=== PATIENT | female | born 1990 | race African-American/Black ===

== ENCOUNTER 2017-04-29 04:04 | Emergency (ER) | payer OTHER ==
[~2017-04-29] VITALS: Ht 165.1 cm; Wt 79.4 kg
[2017-04-29 04:10] VITALS: BP 183/93
[2017-04-29] MEDS ORDERED: CEPHALEXIN 250 MG CAPSULE ONE (04:26)
[2017-04-29] MEDS ORDERED: IBUPROFEN 600 MG TABLET. PO ONE ×2 (04:26→04:30)
[2017-04-29] MEDS ORDERED: IBUP600T16 PO (04:26)
[2017-04-29] MEDS ORDERED: HYDR-971 PO (04:26)
[2017-04-29] MEDS ORDERED: CEPH-264 PO (04:26)
[2017-04-29] MEDS ORDERED: HYDROcodone/APAP 5/325MG 1 TAB TABLET ONE (04:26)
--- NOTE | 2017-04-29 04:27 | PHYS DOC ---
Past History Past Medical History: No Pertinent History Past Surgical History: No Surgical History Alcohol Use: None Drug Use: None Adult General Chief Complaint Chief Complaint: DENTAL PROBLEM HPI HPI Patient is a 26-year-old female who presents here today complaining of a toothache in her right upper and right lower molars. Patient reports she is unable see her dentist for one week. Patient denies any other symptomatology. Review of systems: Constitutional: Denies fever or chills Eyes: Denies change in visual acuity, redness, or eye pain HENT: Denies nasal congestion or sore throat All other review systems are negative except as documented in the history of present illness portion. Physical exam: Constitutional: Well developed, well nourished, no acute distress, non-toxic appearance. HENT: Normocephalic, atraumatic, bilateral external ears normal, nose normal. Eyes: EOMI, conjunctiva normal, no discharge. Neck: Normal range of motion, no tenderness, supple, no stridor. Cardiovascular:Heart rate regular rhythm Lungs & Thorax: Bilateral breath sounds clear to auscultation no respiratory distress Abdomen: Bowel sounds normal, soft, no tenderness, no masses, no pulsatile masses. Skin: Warm, dry, no erythema, no rash. Back: No tenderness, no CVA tenderness. Extremities: No tenderness, no cyanosis, no clubbing, ROM intact, no edema. Neurologic: Alert and oriented X 3, normal motor function, normal sensory function, no focal deficits noted. Psychologic: Affect normal, judgement normal, mood normal. ER physical exam is significant for no trismus. Patient does have tenderness to palpation to her upper and lower molars on the right side. Patient does have soft tissue swelling to her right cheek. Assessment and plan 26-year-old female with dental pain secondary to a likely microabscess. Patient be started on Motrin, [place], Keflex. Urine test pending. Current Medications Current Medications Current Medications Medications (Trade) Dose Ordered Sig/Irene Start Time Stop Time Status Last Admin Dose Admin Acetaminophen/ Hydrocodone Bitart (Lortab 5/325) 1 tab 1X ONCE 04/29/17 04:30 04/29/17 04:31 UNV Cephalexin HCl (Keflex) 500 mg 1X ONCE 04/29/17 04:30 04/29/17 04:31 UNV Ibuprofen (Motrin) 600 mg 1X ONCE 04/29/17 04:30 04/29/17 04:31 UNV Allergies Allergies Allergies Coded Allergies Type Severity Reaction Last Updated Verified No Known Drug Allergies 04/29/17 No Current Patient Data Vital Signs Vital Signs Date Time Temp Pulse Resp B/P (MAP) Pulse Ox O2 Delivery O2 Flow Rate FiO2 04/29/17 04:10 98.0 83 18 98 Room Air EKG EKG [] Radiology/Procedures Radiology/Procedures [] Course & Med Decision Making Course & Med Decision Making Pertinent Labs and Imaging studies reviewed. (See chart for details) [] Dragon Disclaimer Dragon Disclaimer This electronic medical record was generated, in whole or in part, using a voice recognition dictation system. Departure Departure: Impression: Primary Impression: Pain, dental Disposition: HOME, SELF-CARE Condition: IMPROVED Referrals: PCP,RAD (PCP) Patient Instructions: Toothache-Brief Scripts Hydrocodone Bit/Acetaminophen (NORCO 5-325 TABLET) 1 Each Tablet 1 TAB PO PRN Q6HRS Y for PAIN, #12 TAB 0 Refills Prov: KARINA GALVIN MD 04/29/17 Cephalexin (KEFLEX) 500 Mg Capsule 1 CAP PO TID, #30 CAP Prov: KARINA GALVIN MD 04/29/17 Ibuprofen (IBUPROFEN) 600 Mg Tablet 600 MG PO QID Y for PAIN, #20 Prov: KARINA GALVIN MD 04/29/17 KARINA GALVIN MD Apr 29, 2017 04:27
[2017-04-29] MEDS ORDERED: CEPHALEXIN 250 MG CAPSULE PO ONE (04:30)
[2017-04-29] MEDS ORDERED: HYDROcodone/APAP 5/325MG 1 TAB TABLET PO ONE (04:30)
== END 2017-04-29 04:45 | disposition home or self-care (01) ==
LOC: ER 04:04
DX: K08.89 Other specified disorders of teeth and supporting structures (principal)
CPT/HCPCS: 81025; 99284

== ENCOUNTER 2019-10-08 20:55 | Emergency (ER) | payer OTHER ==
[~2019-10-08] VITALS: Ht 167.6 cm; Wt 86.0 kg
[~2019-10-08 20:55] MED LIST: CEPH-264 PO; HYDR-3165 PO; IBUP600T16 PO; PROC5TAB34 PO
--- NOTE | 2019-10-08 21:43 | PHYS DOC ---
Past History Past Medical History: No Pertinent History Past Surgical History: No Surgical History Alcohol Use: None General Adult EDM: Chief Complaint: PELVIC PAIN HPI: HPI: 29-year-old female presents with pelvic pain for last 2 days. She states that the pain starts deep in her pelvis and radiates around to her buttocks. She states that it is a deep cramping sensation. She says that it feels like contractions of labor. She is not . She did deliver a baby 5 months ago. She has not had any rectal bleeding or vaginal bleeding. She does admit to some change in vaginal discharge. Review of Systems: Review of Systems: Constitutional: Denies fever or chills Eyes: Denies change in visual acuity HENT: Denies nasal congestion or sore throat Respiratory: Denies cough or shortness of breath Cardiovascular: Denies chest pain or edema GI: Lower abdominal pain. Denies nausea, vomiting, bloody stools or diarrhea : Vaginal discharge Musculoskeletal: Denies back pain or joint pain Integument: Denies rash Neurologic: Denies headache, focal weakness or sensory changes Endocrine: Denies polyuria or polydipsia Lymphatic: Denies swollen glands Psychiatric: Denies depression or anxiety Heart Score: Risk Factors: Risk Factors: DM, Current or recent (<one month) smoker, HTN, HLP, family history of CAD, obesity. Risk Scores: Score 0 - 3: 2.5% MACE over next 6 weeks - Discharge Home Score 4 - 6: 20.3% MACE over next 6 weeks - Admit for Clinical Observation Score 7 - 10: 72.7% MACE over next 6 weeks - Early Invasive Strategies Allergies: Allergies: Allergies Coded Allergies Type Severity Reaction Last Updated Verified No Known Drug Allergies 10/08/19 No Physical Exam: PE: Constitutional: Well developed, well nourished, obese, no acute distress, non- toxic appearance. [] HENT: Normocephalic, atraumatic, bilateral external ears normal, oropharynx moist, no oral exudates, nose normal. [] Eyes: PERRLA, EOMI, conjunctiva normal, no discharge. [] Neck: Normal range of motion, no tenderness, supple, no stridor. [] Cardiovascular: Heart rate regular rhythm, no murmur [] Lungs & Thorax: Bilateral breath sounds clear to auscultation [] Abdomen: Bowel sounds normal, soft, mild suprapubic tenderness, no masses, no pulsatile masses. [] Skin: Warm, dry, no erythema, no rash. [] Back: No tenderness, no CVA tenderness. [] Extremities: No tenderness, no cyanosis, no clubbing, ROM intact, no edema. [] Neurologic: Alert and oriented X 3, normal motor function, normal sensory function, no focal deficits noted. [] Psychologic: Affect normal, judgement normal, mood normal. : Normal external genitalia, medium thickness white discharge, mild dis comfort with exam.[] Current Patient Data: Labs: Laboratory Tests Test 10/08/19 21:22 POC Urine HCG, Qualitative hcg negative (Negative) Vital Signs: Vital Signs Date Time Temp Pulse Resp B/P (MAP) Pulse Ox O2 Delivery O2 Flow Rate FiO2 10/08/19 20:55 98.4 90 18 122/72 (89) 99 Room Air EKG: EKG: [] Radiology/Procedures: Radiology/Procedures: [] Impressions: Exam: CT of abdomen and pelvis with contrast INDICATION: Pelvic pain TECHNIQUE: Sequential axial images through the abdomen and pelvis obtained following the administration of 75 mL of Omni 300 IV contrast. Sagittal and coronal reformatted images were reconstructed from the axial data and reviewed. Comparisons: None FINDINGS: Heart size is normal. No pericardial effusion. Visualized lung bases are clear. No pleural effusion. There is a 1 cm vague hypoattenuating area within the right hepatic dome series 2 image 14. Otherwise, liver, spleen, pancreas, gallbladder and adrenals are unremarkable. No perinephric inflammation or hydronephrosis. No renal or ureteral calculi are identified. Bladder is distended and appears thin-walled. Uterus is not enlarged. Bilateral adnexal cystic lesions are noted greater on the right measuring approximately 4.4 cm. Trace free fluid is seen in the pelvis. Large and small bowel are unremarkable. Appendix is not identified. No free intra-abdominal air or fluid. No obstruction. Abdominal aorta has a normal course and caliber. No enlarged abdominal lymph nodes are identified. No suspicious osseous lesions or acute fractures. IMPRESSION: 1. Bilateral adnexal cystic lesions at the ovarian in etiology. Consider correlation with ultrasound for better evaluation. Line trace free fluid in the pelvis, may be physiologic. 2. Vague 1 cm hypoattenuating area at the right hepatic dome incompletely characterized on this exam, probable hemangioma. Further evaluation with nonemergent/outpatient liver protocol CT or MRI is recommended. Exposure: One or more of the following in the visualized dose reduction techniques were utilized for this examination: 1. Automated exposure control 2. Adjustment of the MA and/or KV according to patient size 3. Use of iterative of reconstructive technique Electronically signed by: Geoff Miranda MD (10/08/2019 10:29 PM) [id number] DICTATED AND SIGNED BY: GEOFF MIRANDA MD DATE: 10/08/199 CC: VEDA MEYERS DO; PCP,NO ~ INDICATION: Reason: ovarian cysts, rule out torsion / Spl. Instructions: / History: COMPARISON: CT from October 07 TECHNIQUE: Grayscale and color ultrasound images uterus and adnexa. Transabdominal and transvaginal images obtained. Transvaginal images were needed to better visualize structures that were limited on transabdominal imaging. FINDINGS: Uterus: 97 x 47 x 41 mm. Endometrial Stripe: 5 mm. Right Ovary: 45 x 21 x 20 mm. Left Ovary: 40 x 26 x 20 mm. Vascular flow identified to bilateral ovaries. There is some complex fluid within the pelvis. Hypoechoic lesion left ovary measuring 23 x 16 mm. IMPRESSION: * Vascular flow seen to the ovaries. * Hypoechoic lesion at the left ovary. Could be cystic in nature. * There is some suspected complex free fluid seen within the pelvis which could be from debris or blood within. Electronically signed by: Darlene Lockhart MD (10/09/2019 1:26 AM) [id number] DICTATED AND SIGNED BY: DARLENE LOCKHART MD DATE: 10/09/19 0126 CC: VEDA MEYERS DO; PCP,NO ~ Course & Med Decision Making: Course & Med Decision Making Pertinent Labs and Imaging studies reviewed. (See chart for details) The patient's CT scan shows bilateral adnexal masses that are likely ovarian cysts. There is also an incidental liver finding. See official read for more details. Labs are unremarkable. Her urinalysis is negative for or infection. I will order an ultrasound to rule out ovarian torsion. The patient's wet prep shows that she has bacterial vaginosis. I will treat this with Flagyl for 7 days. Culture showed confirms ovarian cyst and does not show torsion. [] Dragon Disclaimer: Dragon Disclaimer: This electronic medical record was generated, in whole or in part, using a voice recognition dictation system. Departure Departure: Impression: Primary Impression: Bacterial vaginosis Additional Impression: Ovarian cyst Qualified Codes: N83.202 - Unspecified ovarian cyst, left side Disposition: HOME/RESIDENCE PRIOR TO ADM Condition: STABLE Referrals: PCP,NO (PCP) Patient Instructions: Bacterial Vaginosis, [id number] Scripts Metronidazole (FLAGYL) 500 Mg Tablet 1 TAB PO BID for bacterial vaginosis, #14 TAB Prov: VEDA MEYERS DO 10/09/19 Justification of Admission: Justification of Admission: Justification of Admission Dx: N/A VEDA MEYERS DO Oct 08, 2019 21:43
[2019-10-08] MEDS ORDERED: CONTRAST GIVEN. MC PRN (22:00)
[2019-10-08] MEDS ORDERED: IOHEXOL 300 MG/ML 75 ML VIAL. IV ONE (22:00)
[2019-10-08 22:04] LABS: BACTERIA,URINE 0 /HPF (0-FEW); BILIRUBIN,URINE NEG (NEG); CLARITY,URINE CLEAR; COLOR,URINE YELLOW; GLUCOSE,URINE NEG (NEG); NITRITE,URINE NEG (NEG); SQUAMOUS EPITHELIAL CELL,UR FEW /LPF
[2019-10-08 22:20] LABS: BASO # 0.1 x10^3/uL (0.0-0.2); BASO % 1 % (0-3); EOS # 0.2 x10^3/uL (0.0-0.7); EOS % 3 % (0-3); HEMATOCRIT 34.2 % (36.0-47.0); HEMOGLOBIN 11.8 g/dL (12.0-15.5); LYMPH # 2.7 x10^3/uL (1.0-4.8); LYMPH % 31 % (24-48); MEAN CORPUSCULAR HEMOGLOBIN 32 pg (25-35); MEAN CORPUSCULAR HGB CONC 35 g/dL (31-37); MEAN CORPUSCULAR VOLUME 94 fL (79-100); MONO # 0.6 x10^3/uL (0.0-1.1); MONO % 7 % (0-9); NEUT % 58 % (31-73); PLATELET COUNT 308 x10^3/uL (140-400); RED BLOOD COUNT 3.66 x10^6/uL (3.50-5.40); RED CELL DISTRIBUTION WIDTH 12.9 % (11.5-14.5); WHITE BLOOD COUNT 8.6 x10^3/uL (4.0-11.0)
[2019-10-08 22:26] LABS: CALCIUM 9.2 mg/dL (8.5-10.1); CREATININE 0.9 mg/dL (0.6-1.0); GFR 89.6; POTASSIUM 4.1 mmol/L (3.5-5.1)
[2019-10-08 22:32] LABS: ALBUMIN 3.7 g/dL (3.4-5.0); ALBUMIN/GLOBULIN RATIO 0.8 (1.0-1.7); TOTAL BILIRUBIN 0.2 mg/dL (0.2-1.0); TOTAL PROTEIN 8.4 g/dL (6.4-8.2)
--- NOTE | 2019-10-08 22:32 | RAD ---
Exam: CT of abdomen and pelvis with contrast INDICATION: Pelvic pain TECHNIQUE: Sequential axial images through the abdomen and pelvis obtained following the administration of 75 mL of Omni 300 IV contrast. Sagittal and coronal reformatted images were reconstructed from the axial data and reviewed. Comparisons: None FINDINGS: Heart size is normal. No pericardial effusion. Visualized lung bases are clear. No pleural effusion. There is a 1 cm vague hypoattenuating area within the right hepatic dome series 2 image 14. Otherwise, liver, spleen, pancreas, gallbladder and adrenals are unremarkable. No perinephric inflammation or hydronephrosis. No renal or ureteral calculi are identified. Bladder is distended and appears thin-walled. Uterus is not enlarged. Bilateral adnexal cystic lesions are noted greater on the right measuring approximately 4.4 cm. Trace free fluid is seen in the pelvis. Large and small bowel are unremarkable. Appendix is not identified. No free intra-abdominal air or fluid. No obstruction. Abdominal aorta has a normal course and caliber. No enlarged abdominal lymph nodes are identified. No suspicious osseous lesions or acute fractures. IMPRESSION: 1. Bilateral adnexal cystic lesions at the ovarian in etiology. Consider correlation with ultrasound for better evaluation. Line trace free fluid in the pelvis, may be physiologic. 2. Vague 1 cm hypoattenuating area at the right hepatic dome incompletely characterized on this exam, probable hemangioma. Further evaluation with nonemergent/outpatient liver protocol CT or MRI is recommended. Exposure: One or more of the following in the visualized dose reduction techniques were utilized for this examination: 1. Automated exposure control 2. Adjustment of the MA and/or KV according to patient size 3. Use of iterative of reconstructive technique Electronically signed by: Geoff Summers MD (10/08/2019 10:29 PM) [id number]
[2019-10-09] MEDS ORDERED: MORPHINE SULFATE 2 MG/ML DISP.SYRIN. IV ONE (01:00)
[2019-10-09] MEDS ORDERED: METR500T PO (01:07)
--- NOTE | 2019-10-09 01:29 | RAD ---
INDICATION: Reason: ovarian cysts, rule out torsion / Spl. Instructions: / History: COMPARISON: CT from October 07 TECHNIQUE: Grayscale and color ultrasound images uterus and adnexa. Transabdominal and transvaginal images obtained. Transvaginal images were needed to better visualize structures that were limited on transabdominal imaging. FINDINGS: Uterus: 97 x 47 x 41 mm. Endometrial Stripe: 5 mm. Right Ovary: 45 x 21 x 20 mm. Left Ovary: 40 x 26 x 20 mm. Vascular flow identified to bilateral ovaries. There is some complex fluid within the pelvis. Hypoechoic lesion left ovary measuring 23 x 16 mm. IMPRESSION: * Vascular flow seen to the ovaries. * Hypoechoic lesion at the left ovary. Could be cystic in nature. * There is some suspected complex free fluid seen within the pelvis which could be from debris or blood within. Electronically signed by: Matheus Durant MD (10/09/2019 1:26 AM) [id number]
[2019-10-09] MEDS ORDERED: metroNIDAZOLE 500 MG TABLET PO ONE (01:30)
[2019-10-09 01:40] VITALS: BP 151/99
[2019-10-10 21:06] LABS: CHLAMYDIA PROBE Negative (Negative)
== END 2019-10-09 01:40 | disposition home or self-care (01) ==
LOC: ER 20:55 → MERGE 20:55 → ER 10-09 01:40
DX: N76.0 Acute vaginitis (principal); B96.89 Other specified bacterial agents as the cause of diseases classified elsewhere; N83.202 Unspecified ovarian cyst, left side
CPT/HCPCS: 74177; 76830; 76856; 80053; 81001; 81025; 85025; 87491; 87591; 96374; 99285; J2270; Q0111; Q9967; 36415

== ENCOUNTER 2019-10-11 19:23 | Emergency (ER) | payer OTHER ==
[~2019-10-11] VITALS: Ht 167.6 cm; Wt 82.7 kg
[2019-10-11 19:23] VITALS: BP 119/80
[~2019-10-11 19:23] MED LIST changes: +METR500T PO
[2019-10-11] MEDS ORDERED: AZITHROMYCIN 250 MG TABLET. PO ONE (19:30)
[2019-10-11] MEDS ORDERED: cefTRIAXone IM 250 MG VIAL IM ONE (19:30)
--- NOTE | 2019-10-11 19:35 | PHYS DOC ---
Past History Past Medical History: No Pertinent History Past Surgical History: No Surgical History Alcohol Use: None Drug Use: Marijuana General Adult EDM: Chief Complaint: ABNORMAL LABS HPI: HPI: 29-year-old female returns the emergency room because she was positive for an STD. The patient was previously seen by myself and opted to not have treatment at that time. Her results came back and we informed her she needed to be treated. She presents now for this treatment of Rocephin and azithromycin. She has no new complaints. Review of Systems: Review of Systems: Constitutional: Denies fever or chills Eyes: Denies change in visual acuity HENT: Denies nasal congestion or sore throat Respiratory: Denies cough or shortness of breath Cardiovascular: Denies chest pain or edema GI: Denies abdominal pain, nausea, vomiting, bloody stools or diarrhea : Denies dysuria Musculoskeletal: Denies back pain or joint pain Integument: Denies rash Neurologic: Denies headache, focal weakness or sensory changes Endocrine: Denies polyuria or polydipsia Lymphatic: Denies swollen glands Psychiatric: Denies depression or anxiety Heart Score: Risk Factors: Risk Factors: DM, Current or recent (<one month) smoker, HTN, HLP, family history of CAD, obesity. Risk Scores: Score 0 - 3: 2.5% MACE over next 6 weeks - Discharge Home Score 4 - 6: 20.3% MACE over next 6 weeks - Admit for Clinical Observation Score 7 - 10: 72.7% MACE over next 6 weeks - Early Invasive Strategies Current Medications: Current Meds: Current Medications Medications (Trade) Dose Ordered Sig/Irene Start Time Stop Time Status Last Admin Dose Admin Azithromycin (Zithromax) 1,000 mg 1X ONCE 10/11/19 19:30 10/11/19 19:31 UNV Ceftriaxone Sodium (Rocephin Im) 250 mg 1X ONCE 10/11/19 19:30 10/11/19 19:31 UNV Allergies: Allergies: Allergies Coded Allergies Type Severity Reaction Last Updated Verified No Known Drug Allergies 04/29/17 No Physical Exam: PE: Constitutional: Well developed, well nourished, no acute distress, non-toxic appearance. [] HENT: Normocephalic, atraumatic, bilateral external ears normal, oropharynx moist, no oral exudates, nose normal. [] Eyes: PERRLA, EOMI, conjunctiva normal, no discharge. [] Neck: Normal range of motion, no tenderness, supple, no stridor. [] Cardiovascular: Heart rate regular rhythm, no murmur [] Lungs & Thorax: Bilateral breath sounds clear to auscultation [] Abdomen: Bowel sounds normal, soft, no tenderness, no masses, no pulsatile masses. [] Skin: Warm, dry, no erythema, no rash. [] Back: No tenderness, no CVA tenderness. [] Extremities: No tenderness, no cyanosis, no clubbing, ROM intact, no edema. [] Neurologic: Alert and oriented X 3, normal motor function, normal sensory func tion, no focal deficits noted. [] Psychologic: Affect normal, judgement normal, mood normal. [] EKG: EKG: [] Radiology/Procedures: Radiology/Procedures: [] Course & Med Decision Making: Course & Med Decision Making Pertinent Labs and Imaging studies reviewed. (See chart for details) The patient was given 250 mg Rocephin IM and a gram of azithromycin p.o. She is stable for discharge at this time. [] Dragon Disclaimer: Dragon Disclaimer: This electronic medical record was generated, in whole or in part, using a voice recognition dictation system. Departure Departure: Impression: Primary Impression: Gonorrhea Disposition: 01 HOME/RESIDENCE PRIOR TO ADM Condition: STABLE Referrals: PCP,NO (PCP) Patient Instructions: Gonorrhea, Females and Males Justification of Admission: Justification of Admission: Justification of Admission Dx: N/A VEDA MEYERS DO Oct 11, 2019 19:35
== END 2019-10-11 19:45 | disposition home or self-care (01) ==
LOC: ER 19:23
DX: A54.9 Gonococcal infection, unspecified (principal)
CPT/HCPCS: 96372; 99283; J0456; J0696